=== PATIENT | female | born 1980 | race Caucasian/White ===

== ENCOUNTER 2020-02-27 11:15 | Inpatient (IN) | payer OTHER ==
[~2020-02-27] VITALS: Ht 170.2 cm; Wt 118.2 kg
[2020-02-27] MEDS ORDERED: ASPI-728 PO (11:45)
[2020-02-27] MEDS ORDERED: FERR236T3 PO (11:45)
[2020-02-27] MEDS ORDERED: ATOR40TA28 PO (11:45)
[2020-02-27] MEDS ORDERED: BUME1TAB34 PO (11:45)
[2020-02-27] MEDS ORDERED: GABA-1181 PO (11:49)
[2020-02-27] MEDS ORDERED: CLON0.1T83 PO (11:49)
[2020-02-27] MEDS ORDERED: CARV6 PO (11:49)
[2020-02-27] MEDS ORDERED: PERM60CR19 TP (11:49)
[2020-02-27] MEDS ORDERED: LISI-662 PO (11:49)
[2020-02-27] MEDS ORDERED: CHOL500043 PO (11:49)
[2020-02-27] MEDS ORDERED: IPRA4AER IH (11:49)
[2020-02-27] MEDS ORDERED: LIDO5CRE18 TP (11:49)
[2020-02-27] MEDS ORDERED: OMEP20TA2 PO (11:49)
[2020-02-27] MEDS ORDERED: ISOS60TA4 PO (11:49)
[2020-02-27] MEDS ORDERED: ALBU8.5H8 IH (11:50)
[2020-02-27] MEDS ORDERED: CYAN1TAB44 PO (11:50)
[2020-02-27 12:28] LABS: BASOPHILS % (AUTO) 1.3 % (0.0-2.0); EOSINOPHILS % (AUTO) 3.4 % (1.0-6.0); HEMATOCRIT 31.1 % (36-46); HEMOGLOBIN 10.3 g/dL (12.0-16.0); LYMPHOCYTES # (AUTO) 2.7 K/uL (1.0-4.8); LYMPHOCYTES % (AUTO) 27.4 % (22.0-44.0); MEAN CORPUSCULAR VOLUME 100 fL (80-100); MONOCYTES # (AUTO) 0.5 K/uL (0.1-1.0); NEUTROPHILS # (AUTO) 6.1 K/uL (1.8-7.7); NEUTROPHILS % (AUTO) 62.9 % (40.0-70.0); PLATELET COUNT (AUTO) 278 K/uL (150-450); RED BLOOD CELL COUNT(AUTO) 3.12 MIL/uL (4.00-5.20); RED CELL DISTRIBUTION WIDTH 14.3 % (11.5-14.5)
[2020-02-27] MEDS: ASPIRIN 81 MG CHEWABLE TABLET PO SCH (12:37)
[2020-02-27 12:53] LABS: CALCIUM, TOTAL 8.8 mg/dL (8.8-10.5); CREATININE 7.72 mg/dL (0.60-1.30); POTASSIUM 5.4 mmol/L (3.5-5.1)
[2020-02-27 12:59] LABS: ALBUMIN 3.1 g/dL (3.4-5.0); BILIRUBIN,TOTAL 0.3 mg/dL (0.1-1.0); TOTAL PROTEIN, SERUM 7.6 g/dL (6.4-8.2)
[2020-02-27 13:47] LABS: COVID AG,FIA SOURCE NASOPHARYNGEAL
[2020-02-27 14:38] VITALS: BP 130/69
[2020-02-27] MEDS ORDERED: LIDOCAINE/PF 1% 2 ML VIAL ONE (16:33)
[2020-02-27 20:59] VITALS: BP 135/71
[2020-02-27] MEDS: CARVEDILOL 6.25 MG TABLET PO SCH (21:00)
[2020-02-27] MEDS: DOCUSATE SODIUM 100 MG CAPSULE PO SCH (21:00)
[2020-02-27] MEDS: ATORVASTATIN CALCIUM 40 MG TABLET PO SCH (21:00)
[2020-02-27] MEDS: HEPARIN SODIUM,PORCINE 5,000 UNITS/ML VIAL SQ SCH (21:00)
[2020-02-28 01:50] VITALS: BP 128/61
[2020-02-28 04:00] VITALS: BP 140/62
[2020-02-28 08:26] VITALS: BP 137/75
[2020-02-28] MEDS: DOCUSATE SODIUM 100 MG CAPSULE PO SCH ×2 (09:00→21:00)
[2020-02-28] MEDS: CARVEDILOL 6.25 MG TABLET PO SCH ×2 (09:57→22:03)
[2020-02-28] MEDS: ASPIRIN 81 MG CHEWABLE TABLET PO SCH (09:57)
[2020-02-28] MEDS: FAMOTIDINE 20 MG TABLET PO SCH (09:58)
[2020-02-28] MEDS: HEPARIN SODIUM,PORCINE 5,000 UNITS/ML VIAL SQ SCH ×2 (09:58→22:04)
[2020-02-28 19:55] VITALS: BP 146/70
[2020-02-28] MEDS: ATORVASTATIN CALCIUM 40 MG TABLET PO SCH (22:03)
[2020-02-29 05:11] VITALS: BP 150/80
[2020-02-29 07:50] VITALS: BP 137/76
[2020-02-29] MEDS: ASPIRIN 81 MG CHEWABLE TABLET PO SCH (09:39)
[2020-02-29] MEDS: FAMOTIDINE 20 MG TABLET PO SCH (09:39)
[2020-02-29] MEDS: DOCUSATE SODIUM 100 MG CAPSULE PO SCH ×2 (09:39→20:54)
[2020-02-29] MEDS: CARVEDILOL 6.25 MG TABLET PO SCH ×2 (09:39→20:48)
[2020-02-29] MEDS: HEPARIN SODIUM,PORCINE 5,000 UNITS/ML VIAL SQ SCH ×2 (09:39→20:48)
[2020-02-29] MEDS ORDERED: ACET650S24 PR (12:47)
[2020-02-29] MEDS ORDERED: ACET-2865 PO (12:49)
[2020-02-29 20:10] VITALS: BP 148/72
[2020-02-29] MEDS: ATORVASTATIN CALCIUM 40 MG TABLET PO SCH (20:47)
[2020-02-29] MEDS: ZOLPIDEM TARTRATE 5 MG TABLET PO PRN (20:50)
[2020-03-01] MEDS: ACETAMINOPHEN 325 MG TABLET PO PRN ×2 (04:47→23:24)
[2020-03-01 04:48] VITALS: BP 146/77
[2020-03-01 08:16] VITALS: BP 124/72
[2020-03-01 08:19] LABS: CALCIUM, TOTAL 8.6 mg/dL (8.8-10.5); CREATININE 7.34 mg/dL (0.60-1.30); MAGNESIUM 2.2 mg/dL (1.80-2.40); PHOSPHORUS 3.8 mg/dL (2.5-4.9); POTASSIUM 4.6 mmol/L (3.5-5.1)
[2020-03-01] MEDS: ASPIRIN 81 MG CHEWABLE TABLET PO SCH (08:55)
[2020-03-01] MEDS: DOCUSATE SODIUM 100 MG CAPSULE PO SCH ×2 (08:55→20:43)
[2020-03-01] MEDS: HEPARIN SODIUM,PORCINE 5,000 UNITS/ML VIAL SQ SCH ×2 (08:56→20:40)
[2020-03-01] MEDS: FAMOTIDINE 20 MG TABLET PO SCH (08:56)
[2020-03-01] MEDS: CARVEDILOL 6.25 MG TABLET PO SCH ×2 (08:56→23:19)
[2020-03-01] MEDS ORDERED: SODIUM CHLORIDE 0.9% 2,000 ML ONE (14:47)
[2020-03-01 20:05] VITALS: BP 127/77
[2020-03-01] MEDS: ATORVASTATIN CALCIUM 40 MG TABLET PO SCH (20:40)
[2020-03-01] MEDS: ZOLPIDEM TARTRATE 5 MG TABLET PO PRN (21:04)
[2020-03-01 23:12] VITALS: BP 145/71
[2020-03-01] MEDS ORDERED: KETOROLAC TROMETHAMINE 15 MG/ML VIAL IVP PRN (23:45)
[2020-03-02 05:00] VITALS: BP 145/77
[2020-03-02] MEDS: ACETAMINOPHEN 325 MG TABLET PO PRN ×2 (06:21→20:08)
[2020-03-02 07:53] VITALS: BP 127/59
[2020-03-02] MEDS: ASPIRIN 81 MG CHEWABLE TABLET PO SCH (08:08)
[2020-03-02] MEDS: FAMOTIDINE 20 MG TABLET PO SCH (08:09)
[2020-03-02] MEDS: DOCUSATE SODIUM 100 MG CAPSULE PO SCH ×2 (08:09→21:00)
[2020-03-02] MEDS: HEPARIN SODIUM,PORCINE 5,000 UNITS/ML VIAL SQ SCH ×2 (08:09→20:06)
[2020-03-02] MEDS: CARVEDILOL 6.25 MG TABLET PO SCH ×2 (08:09→20:06)
[2020-03-02] MEDS: VITAMIN B COMP/VIT C/FOLIC ACID CAPSULE PO SCH (14:23)
[2020-03-02] MEDS ORDERED: HEPARIN SODIUM,PORCINE 1,000 UNITS/ML VIAL ONE (16:34)
[2020-03-02 19:40] VITALS: BP 124/64
[2020-03-02] MEDS: ATORVASTATIN CALCIUM 40 MG TABLET PO SCH (20:06)
[2020-03-02] MEDS: ZOLPIDEM TARTRATE 5 MG TABLET PO PRN (20:57)
[2020-03-03 04:42] VITALS: BP 119/57
[2020-03-03] MEDS: ACETAMINOPHEN 325 MG TABLET PO PRN (06:06)
[2020-03-03] MEDS: ASPIRIN 81 MG CHEWABLE TABLET PO SCH (07:55)
[2020-03-03] MEDS: CARVEDILOL 6.25 MG TABLET PO SCH (07:56)
[2020-03-03] MEDS: FAMOTIDINE 20 MG TABLET PO SCH (07:56)
[2020-03-03] MEDS: VITAMIN B COMP/VIT C/FOLIC ACID CAPSULE PO SCH (07:56)
[2020-03-03] MEDS: HEPARIN SODIUM,PORCINE 5,000 UNITS/ML VIAL SQ SCH (07:56)
[2020-03-03] MEDS: DOCUSATE SODIUM 100 MG CAPSULE PO SCH (08:00)
[2020-03-03 08:38] VITALS: BP 145/79
[2020-03-03 13:24] LABS: COVID AG,FIA SOURCE NASOPHARYNGEAL
== END 2020-03-03 16:07 | DRG 640 ==
LOC: EMS 11:21 → 6S 12:31
PROVIDERS: ADMIT Internal Medicine; ATTEND Internal Medicine
PROC: 5A1D70Z Performance of Urinary Filtration, Intermittent, Less than 6 Hours Per Day (ICD-10-PCS; principal; 2020-02-28)
PROC: 5A1D70Z Performance of Urinary Filtration, Intermittent, Less than 6 Hours Per Day (ICD-10-PCS; 2020-03-01)
DX: E87.5 Hyperkalemia (principal); N18.6 End stage renal disease; I13.2 Hypertensive heart and chronic kidney disease with heart failure and with stage 5 chronic kidney disease, or end stage renal disease; Z68.41 Body mass index [BMI] 40.0-44.9, adult; E44.0 Moderate protein-calorie malnutrition; F20.0 Paranoid schizophrenia; Z20.822 Contact with and (suspected) exposure to COVID-19; I25.10 Atherosclerotic heart disease of native coronary artery without angina pectoris; F29 Unspecified psychosis not due to a substance or known physiological condition; E66.01 Morbid (severe) obesity due to excess calories; I50.9 Heart failure, unspecified; J44.9 Chronic obstructive pulmonary disease, unspecified; Z79.82 Long term (current) use of aspirin; Z79.899 Other long term (current) drug therapy; Z99.2 Dependence on renal dialysis
CPT/HCPCS: 83735; 84100; 87081; 87340; 87426; 93005; J1644; J1885; J3490; J7030; 36415-L1; 36415-TC; 71045-TC